=== PATIENT | female | born 1995 | race Caucasian/White ===

== ENCOUNTER 2022-05-09 14:46 | Emergency (ER) | payer BC, SELFPAY ==
[2022-05-09 15:11] VITALS: BP 177/113; PULSE 94; RESP 18; TEMP 37; O2SAT 96; BMI 44.9
--- NOTE | 2022-05-09 16:00 | CRLHL7_ITS ---
For Patients: As a result of the Century Cures Act, medical imaging exams and procedure reports are released immediately into your electronic medical record. You may view this report before your referring provider. If you have questions, please contact your health care provider. INDICATION: Right lower quadrant pain, history of PCOS. COMPARISON: None. TECHNIQUE: 2D corado scale and color Doppler images were acquired of the pelvis using a transvaginal approach. FINDINGS: Sonographic images demonstrate a normal size and smooth outer contour of the uterus. The uterus is anteverted in position. The uterus measures 7.6 cm in length by 3.8 cm in AP diameter by 3.8 cm in transverse dimension. The myometrium has uniform echotexture. The endometrial lining measures 4 mm in composite thickness. Small amount of fluid within the cervical canal. The right ovary measures 3.8 x 2.5 x 2.3 cm in size and the left ovary measures 2.0 x 1.9 x 2.1 cm in size. The ovaries demonstrate normal arterial and venous blood flow on color Doppler analysis. There is a 1.8 cm dominant follicle in the right ovary. No free fluid in the cul-de-sac. IMPRESSION: 1. Dominant follicle in the right ovary. 2. Small amount of fluid within the cervical canal. 3. Exam otherwise unremarkable. No evidence of torsion. Dictated by Elizabeth Davis MD @ 05/09/2022 5:53:57 PM (Electronically Signed)
--- NOTE | 2022-05-09 17:57 | ED_ITS ---
HPI - Abdominal Pain General Chief Complaint: Abdominal Pain Stated Complaint: Right Side Abdominal Pain Time Seen by Provider: 05/09/22 14:53 History of Present Illness HPI narrative: This 27-year-old female comes in reporting right lower quadrant abdominal pain that began upon awakening this morning. She woke up with this pain at around 7:00 a.m. and it has been constant since then. She does not report any altered bowel habits or function. She does not have any dysuria or fevers. She does have a history of polycystic ovarian syndrome. She states that she had an ultrasound about 5 years ago. Her symptoms involved pain in the right lower quadrant overlying her right ovary. Related Data Home Medications Medication Instructions Recorded Confirmed No Known Home Medications 05/09/22 05/09/22 Allergies Allergy/AdvReac Type Severity Reaction Status Date / Time No Known Allergies Allergy Unverified 05/08/22 08:54 Review of Systems Status of ROS Reports: 10 or more systems reviewed and unremarkable except as noted in History and below Narrative Constitutional: No fevers, no weight gain or loss. Eyes: No discharge. No vision changes. HENT: No congestion, no sore throat, no ear pain. Cardiovascular: No chest pain, no palpitations. Respiratory: No shortness of breath, no wheezes, no cough. Gastrointestinal: No vomiting, no diarrhea. Abdominal pain as described above. Genitourinary: No dysuria, no hematuria. Musculoskeletal: Normal range of motion. Skin: No rashes, no pruritis. Neurological: No dizziness, weakness, sensory change, speech change. Endo/Heme/Allergies: No bruising or bleeding. No polydipsia. Pysch: no suicidality, no anxiety, no insomnia. All other systems reviewed and are negative. PFSH PFSH Medical History Acute strain of neck muscle Concussion without loss of consciousness Family History Other Depression Diabetes High blood pressure High cholesterol Social History Narrative: Oral contraceptive use Smoking Status: Never smoker Do you use any of these nicotine containing products: None How often do you have a drink containing alcohol: monthly or less How often do you have six or more drinks on one occasion: Never AUDIT-C Alcohol total score: 1 Non-prescribed substance use: denies use Exam Narrative: Exam Narrative: Constitutional: Well-developed, well-nourished, no acute distress. HEENT: Normocephalic, atraumatic. Neck: Normal range of motion. Nontender. Supple. Heart: Regular. No murmurs. Normal rate. Intact distal pulses. Lungs: Clear to auscultation. No chest discomfort. No wheezes, rhonchi, or rales . Abdomen: Normal bowel sounds. Tenderness in the right lower quadrant overlying the area where the right ovary would be. No rebound tenderness. Genitalia: Deferred. Back: No midline tenderness. Normal range of motion. Extremities: Normal range of motion. No injury. Skin: Intact. No rash. Warm. No erythema or pallor. Neurologic: No altered sensation. No weakness. Alert and oriented. Psychiatric: No suicidality. No anxiety or depression. No insomnia. Nursing notes and vitals signs are reviewed. Const: Vital Signs, click to edit/add: Vital Signs - 24 hr 05/09/22 15:11 Temperature 98.6 F Pulse Rate [Left F emoral] 94 Respiratory Rate 18 Blood Pressure [Ri ght Upper Arm] 177/113 H Pulse Oximetry 96 Course Vital Signs Vital signs: Initial Vital Signs Temperature 98.6 F 05/09/22 15:11 Temperature Source Temporal Artery Scan 05/09/22 15:11 Pulse Rate 94 05/09/22 15:11 Respiratory Rate 18 05/09/22 15:11 Blood Pressure 177/113 H 05/09/22 15:11 Blood Pressure Mean 134 05/09/22 15:11 Blood Pressure Position Sitting 05/09/22 15:11 Pulse Oximetry 96 05/09/22 15:11 Oxygen Delivery Method 05/09/22 15:11 Vital Signs Temperature 98.6 F 05/09/22 15:11 Pulse Rate 94 05/09/22 15:11 Respiratory Rate 18 05/09/22 15:11 Blood Pressure 177/113 H 05/09/22 15:11 Pulse Oximetry 96 05/09/22 15:11 Temperature 98.6 F 05/09/22 15:11 Pulse Rate 94 05/09/22 15:11 Respiratory Rate 18 05/09/22 15:11 Blood Pressure 177/113 H 05/09/22 15:11 Pulse Oximetry 96 05/09/22 15:11 MDM - Abdominal Pain MDM Narrative Medical decision making narrative: This patient comes in with abdominal pain and given her history is suspicious for a ruptured ovarian cyst. An ultrasound of the pelvic organs is ordered and completed. Transvaginal ultrasound shows normal appearing ovaries and uterus. There is a follicle measuring 1.8 cm on the right ovary. There is a small amount of fluid in the cul-de-sac. These results are reassuring to the patient. She is really not showing any findings typical of polycystic ovarian syndrome. Nevertheless her pain may be related to her right ovary and a ruptured ovarian cyst or some drainage from the follicle. She is okay to be discharged home. She received a prescription for Toradol. Imaging Data pelvic us: Radiologist's impression: 1. Dominant follicle in the right ovary. 2. Small amount of fluid within the cervical canal. 3. Exam otherwise unremarkable. No evidence of torsion. Discharge Plan Discharge Clinical Impression: Abdominal pain Prescriptions: No Action No Known Home Medications 0RF Follow Up/Referrals: Jane Pool PA-C [Primary Care Provider] -
== END 2022-05-09 18:33 | disposition home or self-care (01) ==
LOC: ED 15:51
PROVIDERS: Emergency Provider Emergency Medicine Emergency Medical Services; PCP Physician Assistant Medical
DX: R10.9 Unspecified abdominal pain (principal)
CPT/HCPCS: 76830; 93976; 99284

== ENCOUNTER 2022-07-30 10:14 | Outpatient (CLI) | payer BC, SELFPAY ==
[2022-07-30 13:01] LABS: HCG Quantitative* < 2.39 mIU/mL
== END 2022-07-30 10:15 | disposition home or self-care (01) ==
LOC: NFLDREF 10:14
PROVIDERS: PCP Physician Assistant Medical; Visit Provider Obstetrics & Gynecology
DX: N92.6 Irregular menstruation, unspecified (principal)
CPT/HCPCS: 84702

== ENCOUNTER 2022-08-19 11:33 | Emergency (ER) | payer BC, SELFPAY ==
[2022-08-19 11:38] VITALS: BP 159/106; PULSE 103; RESP 18; TEMP 36.8; O2SAT 98; BMI 45.8
[2022-08-19 11:42] VITALS: BP 159/106; PULSE 103; RESP 18; TEMP 36.8; O2SAT 98
[2022-08-19 11:56] VITALS: BP 126/93
--- NOTE | 2022-08-19 11:56 | ED.GENADULT ---
HPI - General Adult General Time Seen by Provider: 11:57 Date Seen: 08/19/22 Chief complaint: High Blood Pressure Stated complaint: High bp Time Seen by Provider: 08/19/22 11:34 Source: patient Mode of arrival: ambulatory Limitations: no limitations History of Present Illness HPI narrative: Patient is a 27 year white female who reports she has had feelings of flushing recently and had noted an elevated blood pressure and presents for that. She also states she has been dropping things although does not really describe weakness in her arms or legs, no focal neurologic findings, no headache, no visual problem, no chest pain, no shortness of breath, ambulating without difficulty. 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 No leg swelling or edema. Related Data Home Medications Medication Instructions Recorded Confirmed escitalopram oxalate 5 mg tablet 30 mg PO QDAY 05/12/22 08/19/22 pregabalin 75 mg capsule 75 mg PO QDAY 05/12/22 08/19/22 Previous Rx's Medication Instructions Recorded norethindrone (contraceptive) 0.35 0.35 mg PO QDAY #84 tabs 05/12/22 mg tablet (Kareen) Allergies Allergy/AdvReac Type Severity Reaction Status Date / Time No Known Allergies Allergy Verified 08/19/22 11:37 Review of Systems Status of ROS: Reports: 10 or more systems reviewed and unremarkable except as noted in History and below [facility] Medical History Acute strain of neck muscle Concussion without loss of consciousness Digestive problems Wrist fracture Surgical History S/P section Family History Other Depression Diabetes High blood pressure High cholesterol Social History Narrative: Oral contraceptive use Smoking Status: Never smoker Do you use any of these nicotine containing products: None How often do you have a drink containing alcohol: monthly or less How often do you have six or more drinks on one occasion: Never AUDIT-C Alcohol total score: 1 Non-prescribed substance use: denies use Exam Narrative: Exam Narrative: Objective vital signs are slightly elevated blood pressure 159/106 afebrile O2 sat 90% on room air HEENT is unremarkable no facial asymmetry neck is supple pupils react to light Lungs are clear Heart rhythm regular no murmur Chest is clear Abdomen benign soft nontender elevated BMI Extremities are no edema neurologic nonfocal Good peripheral perfusion noted. Repeat blood pressure shows 123/86 Const: Vital Signs, click to edit/add: Vital Signs - 24 hr 08/19/22 11:38 Temperature 98.3 F Pulse Rate [Pulse Oximeter] 103 H Respiratory Rate 18 Blood Pressure [Ri ght Upper Arm] 159/106 H Pulse Oximetry 98 Oxygen Delivery Me thod Room Air Course Vital Signs Vital signs: Initial Vital Signs Temperature 98.3 F 08/19/22 11:38 Temperature Source Temporal Artery Scan 08/19/22 11:38 Pulse Rate 103 H 08/19/22 11:38 Respiratory Rate 18 08/19/22 11:38 Blood Pressure 159/106 H 08/19/22 11:38 Blood Pressure Mean 123 08/19/22 11:38 Blood Pressure Position Supine 08/19/22 11:38 Pulse Oximetry 98 08/19/22 11:38 Oxygen Delivery Method 08/19/22 11:38 Vital Signs Temperature 98.3 F 08/19/22 11:38 Pulse Rate 103 H 08/19/22 11:38 Respiratory Rate 18 08/19/22 11:38 Blood Pressure 159/106 H 08/19/22 11:38 Pulse Oximetry 98 08/19/22 11:38 Oxygen Delivery Method 08/19/22 11:38 Temperature 98.3 F 08/19/22 11:38 Pulse Rate 103 H 08/19/22 11:38 Respiratory Rate 18 08/19/22 11:38 Blood Pressure 159/106 H 08/19/22 11:38 Pulse Oximetry 98 08/19/22 11:38 Oxygen Delivery Method 08/19/22 11:38 Medical Decision Making MDM Narrative Medical decision making narrative: Patient has a benign-appearing examination, blood pressure is improved, at this point I think could be appropriate to check some baseline labs heme 4 basic 7. I would have her follow up with a line a with several blood pressure checks a day over the next several days and then repeat visit. She has had some symptoms of flushing which I think we can review with the lab studies, her examination looks unremarkable, no symptoms of infectious illness or metabolic abnormality at this time, will check the labs to ensure this, reach eat repeat blood pressure measures and then follow-up visit as described. I do not detect any focal neurologic weakness today Discharge Plan Discharge Clinical Impression: Elevated blood pressure reading Patient Disposition: Home, Self-Care Condition: Stable Additional Instructions: Check blood pressure 2 to 3 times a day over the next several days and then follow-up clinic appointment align a. Restrict salt in the diet, physical activity, reduce stress, return to ED sooner problems concerns difficulty. We will call back today if any abnormalities in her blood work Activity Level: No Restrictions Discharge Diet: Regular Prescriptions: No Action escitalopram oxalate 5 mg tablet 30 mg PO QDAY pregabalin 75 mg capsule 75 mg PO QDAY norethindrone (contraceptive) [Kareen] 0.35 mg tablet 0.35 mg PO QDAY Qty: 84 3RF Follow Up/Referrals: Jane Pool PA-C [Primary Care Provider] - Stand Alone Forms: [employer] Info Instructions
[2022-08-19 12:00] VITALS: BP 121/66
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
[2022-08-19 12:15] LABS: Basophils Absolute Auto 0.03 K/uL (0.00-0.30); Basophils Percent Auto 0.3 % (0.0-3.0); Eosinophils Absolute Auto 0.26 K/uL (0.00-0.50); Eosinophils Percent Auto 2.7 % (0.0-7.0); Hematocrit 39.4 % (33.0-51.0); Immature Granulocytes Abs Auto 0.01 K/uL (0.00-0.30); Lymphocytes Percent Auto 16.7 % (20-44); Mean Corpuscular HGB Conc 33 gm/dL (32-36); Mean Corpuscular Hemoglobin 26 pg (26-34); Mean Corpuscular Volume 78 fL (80-100); Monocytes Percent Auto 6.3 % (0.0-11.0); Neutrophils Percent Auto 73.9 % (42.0-72.0); Platelet Count* 284 K/uL (140-440); Red Blood Count 5.08 m/uL (4.00-5.20); White Blood Count* 9.76 K/uL (4.50-11.00)
[2022-08-19 12:22] LABS: Slide Review Reflex No
[2022-08-19 12:29] LABS: Chloride* 104 mmol/L (96-114); Potassium* 4.2 mmol/L (3.6-5.1); Sodium* 140 mmol/L (135-149)
[2022-08-19 12:32] LABS: Blood Urea Nitrogen* 8 mg/dL (5-24); Carbon Dioxide* 27 mmol/L (20-32); Creatinine* 0.6 mg/dL (0.5-1.5); Est. Creatinine Clearance* 126.73; Estimated Glomerular Filt Rate 126 ml/min; Glucose* 105 mg/dL (60-115)
== END 2022-08-19 12:17 | disposition home or self-care (01) ==
PROVIDERS: Emergency Provider Family Medicine
DX: R03.0 Elevated blood-pressure reading, without diagnosis of hypertension (principal)
CPT/HCPCS: 36415; 80048; 85025; 99282; 99283

== ENCOUNTER 2022-08-27 08:02 | Outpatient (CLI) | payer BC, SELFPAY ==
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
--- NOTE | 2022-08-27 08:15 | CRLHL7_ITS ---
For Patients: As a result of the Century Cures Act, medical imaging exams and procedure reports are released immediately into your electronic medical record. You may view this report before your referring provider. If you have questions, please contact your health care provider. INDICATION: Hypertension TECHNIQUE: Grayscale, color Doppler and power Doppler evaluation of both kidneys. COMPARISON: None available FINDINGS: BILATERAL RENAL ARTERY DUPLEX ULTRASOUND ABDOMINAL AORTA: Peak systolic velocity = 110 cm/s. No aortic aneurysm. RIGHT KIDNEY: 11.1 cm in length. There is no hydronephrosis. Peak systolic velocity = 150 cm/second Renal artery to aortic peak systolic velocity ratio = 1.4 Resistive indices: 0.6 Renal vein = patent LEFT KIDNEY: 11.4 cm in length. There is no hydronephrosis. Peak systolic velocity = 93 cm/second Renal artery to aortic peak systolic velocity ratio = 0.8 Resistive indices: 0.5-0.6 Renal vein = patent IMPRESSION: No evidence of significant renal artery stenosis. Dictated by Fly Sexton MD @ 08/27/2022 12:18:39 PM (Electronically Signed)
== END 2022-08-27 08:03 | disposition home or self-care (01) ==
LOC: US 08:03
PROVIDERS: PCP Student in an Organized Health Care Education/Training Program; Visit Provider Student in an Organized Health Care Education/Training Program
DX: R03.0 Elevated blood-pressure reading, without diagnosis of hypertension (principal)
CPT/HCPCS: 76775; 93975

== ENCOUNTER 2022-11-22 20:06 | Outpatient (CLI) | payer BC, SELFPAY | END 2022-11-22 20:07 | disposition home or self-care (01) | PROVIDERS: PCP Student in an Organized Health Care Education/Training Program; Visit Provider Otolaryngology | DX: G47.33 Obstructive sleep apnea (adult) (pediatric) (principal) | CPT/HCPCS: 95810 ==

== ENCOUNTER 2024-10-12 14:24 | Emergency (ER) | payer BC, SELFPAY ==
[2024-10-12 14:39] VITALS: BP 134/89; PULSE 105; RESP 18; TEMP 36.9; O2SAT 98; BMI 47.3
--- NOTE | 2024-10-12 15:13 | ED.ABDPAIN ---
HPI - Abdominal Pain General Time Seen by Provider: 15:14 Date Seen: 10/12/24 Chief Complaint: Abdominal Pain Stated Complaint: abdominal pain Time Seen by Provider: 10/12/24 15:11 Source: patient and RN notes reviewed Mode of arrival: ambulatory Limitations: no limitations History of Present Illness HPI narrative: This 29-year-old female is coming in with progressively worsening abdominal pain since yesterday. It is definitely worse today than was yesterday. She has been trying alternating Tylenol and ibuprofen. It is coming in waves. She will feel it into the front of her legs. She has nausea with this but no vomiting, notes diminished appetite. Maybe has had some blueberries today. Had a normal bowel movement this morning, denies any history constipation, there has been no diarrhea. There was no urinary changes. She has had a prior about 10 years ago but no other abdominal surgeries. She has felt clammy lightheaded, dizzy with this. She does have some mild low back pain. She is not aware of any family history such as gallbladder disease or kidney stones. She is on contraceptives, does have underlying PCOS. Denies any reflux or heartburn symptoms. Pain initially felt in her lower abdomen but now it seems to be generalizing, is feeling it in her upper abdomen too. She does state her menstrual cycle is due, initially thought maybe her symptoms were just PMS but were severe for her. States there is no chance for , is on oral contraceptives. elicited complaint: abdominal pain Related Data Home Medications ?Medication ?Instructions ?Recorded ?Confirmed escitalopram oxalate 5 mg tablet 30 mg PO QDAY 05/12/22 09/24/23 Previous Rx's ?Medication ?Instructions ?Recorded norethindrone (contraceptive) 0.35 0.35 mg PO QDAY #84 tabs 09/24/23 mg tablet (Kareen) ketorolac 10 mg tablet 10 mg PO Q6H PRN pain #20 tabs 10/12/24 Allergies Allergy/AdvReac Type Severity Reaction Status Date / Time No Known Allergies Allergy Verified 09/24/23 15:32 Review of Systems Status of ROS Reports: 6 or more systems reviewed and unremarkable except as noted in History and below PFSH PFS Medical History Wrist fracture ?S62.109A - Fracture of unspecified carpal bone, unspecified wrist, initial encounter for closed fracture (ICD-10) Digestive problems ?K92.9 - Disease of digestive system, unspecified (ICD-10) Concussion without loss of consciousness ?S06.0X0A - Concussion without loss of consciousness, initial encounter (ICD-10) Acute strain of neck muscle ?S16.1XXA - Strain of muscle, fascia and tendon at neck level, initial encounter (ICD-10) Surgical History S/P section ?Z98.891 - History of uterine scar from previous surgery (ICD-10) Family History Other Depression Diabetes High blood pressure High cholesterol Osteoporosis Social History Narrative: Oral contraceptive use What is your current living situation?: I presently have a place to live Problems where you live: no known problems In the past 12 months, utilities in danger of being shut off: no In past 12 months, lack of transportation kept you from medical appts, meetings, work, or getting things needed for daily living: no In the past 12 mos, have been you worried that your food would run out before you had money to buy more?: never true In the past 12 mos, the food you bought just didn't last and you didn't have money to buy more?: never true Smoking Status: Never smoker Do you use any of these nicotine containing products: None How often do you have a drink containing alcohol: monthly or less How often do you have six or more drinks on one occasion: Never AUDIT-C Alcohol total score: 1 Non-prescribed substance use: denies use How often does anyone, including family, friends and others, physically hurt you: never How often does anyone, including family, friends and others, insult or talk down to you: never How often does anyone, including family, friends and others, threaten you with harm: never How often does anyone, including family, friends and others, scream or curse at you: never service: No Exam Const: Vital Signs, click to edit/add: Vital Signs - 24 hr 10/12/24 14:39 10/12/24 16:54 Temperature 98.4 F Pulse Rate [Pulse Oximeter] 105 H 68 Respiratory Rate 18 18 Blood Pressure [Ri ght Upper Arm] 134/89 112/77 Pulse Oximetry 98 98 Oxygen Delivery Me thod Room Air This 29-year-old female is seen in exam room 4, she is alert, interactive, no apparent distress. Sclera clear, symmetric facial function, able to speak in complete sentences. Lungs are clear, good air entry, no wheezing or crackles, no tachypnea, no accessory muscle use. CV regular rate and rhythm, no murmur. Abdomen is obese but soft, bowel sounds are distant but do hear some. Do not feel any masses or organomegaly but body habitus may confound this examination. She certainly seems to have the most tenderness in the right upper quadrant at this time. Documenting provider has reviewed patient's vital signs: yes Course Course ED Course: Patient is uncomfortable, discussed pain management. Agreed upon Toradol which if she does discharge from here she can not drive on. She declines anything for nausea at this time, states she will be fine. Will proceed with right upper quadrant ultrasound, pain definitely seems to be localized over the right upper quadrant and in the gallbladder area. Will get full complement of labs as well. Reevaluation(s) Time of Reevaluation #1: 16:44 Reevaluation #1: Nursing staff reported after patient came back from ultrasound, went to the bathroom and did start bleeding, passed a clot. She thinks it is possibly her menstrual cycle starting that caused her symptoms. Did review with nursing staff that there certainly were gallstones seen on ultrasound, she was negative for sonographic Ferrera sign per door to door fundraising collector. Awaiting labs, awaiting over-read of the ultrasound. Time of Reevaluation #2: 17:08 Reevaluation #2: Have reviewed the ultrasound report, patient does have fatty liver and gallstones. I do think she is likely asymptomatic as far as gallstones. She did have right upper quadrant tenderness for me but also has subsequently started with her menstrual cycle. She states she has had this happen before, has had significant pain and bleeding that brought her to the ER before her cycle actually started. Will plan on discharge to home, she felt the IV Toradol really helped, will send her with some Toradol orally. She states she has tried different control options, can follow up with her primary outpatient to discuss this further. Vital Signs Vital signs: Initial Vital Signs Temperature 98.4 F 10/12/24 14:39 Temperature Source Temporal Artery Scan 10/12/24 14:39 Pulse Rate 105 H 10/12/24 14:39 Respiratory Rate 18 10/12/24 14:39 Blood Pressure 134/89 10/12/24 14:39 Blood Pressure Mean 104 10/12/24 14:39 Blood Pressure Position Sitting 10/12/24 14:39 Pulse Oximetry 98 10/12/24 14:39 Oxygen Delivery Method Room Air 10/12/24 14:39 Vital Signs Temperature 98.4 F 10/12/24 14:39 Pulse Rate 105 H 10/12/24 14:39 Respiratory Rate 18 10/12/24 14:39 Blood Pressure 134/89 10/12/24 14:39 Pulse Oximetry 98 10/12/24 14:39 Oxygen Delivery Method Room Air 10/12/24 14:39 Temperature 98.4 F 10/12/24 14:39 Pulse Rate 68 10/12/24 16:54 Respiratory Rate 18 10/12/24 16:54 Blood Pressure 112/77 10/12/24 16:54 Pulse Oximetry 98 10/12/24 16:54 Oxygen Delivery Method Room Air 10/12/24 14:39 Medications Administered Medications: Discontinued Medications Generic Name Dose Route Start Last Admin Trade Name Freq PRN Reason Stop Dose Admin Ketorolac Tromethamine 15 mg 10/12/24 15:26 10/12/24 16:22 Ketorolac 15 Mg/Ml Inj IVP 10/12/24 15:27 15 mg ONCE ONE Administration MDM - Abdominal Pain Lab Data Attestation: I reviewed the patient's lab results. Labs: Lab Results 10/12/24 10/12/24 Range/Units 15:07 15:40 WBC 11.73 H (4.50-11.00) K/uL RBC 4.97 (4.00-5.20) m/uL Hgb 12.4 (12.0-16.0) gm/dL Hct 38.5 (33.0-51.0) % MCV 78 L (80-100) fL MCH 25 L (26-34) pg MCHC 32 (32-36) gm/dL RDW Coeff of Rory 14.2 (11.5-15.5) % Plt Count 296 (140-440) K/uL Neut % (Auto) 82.5 H (42.0-72.0) % Lymph % (Auto) 12.4 L (20-44) % Baker % (Auto) 3.8 (0.0-11.0) % Eos % (Auto) 0.9 (0.0-7.0) % Baso % (Auto) 0.2 (0.0-3.0) % Neut # (Auto) 9.70 H (1.7-7.0) K/uL Lymph # (Auto) 1.50 (0.90-2.90) K/uL Baker # (Auto) 0.40 (0.00-0.90) K/UL Eos # (Auto) 0.10 (0.00-0.50) K/uL Baso # (Auto) 0.00 (0.00-0.30) K/uL Abs Immat Gran (auto) 0.00 (0.00-0.30) K/uL Imm/Tot Granulo (auto) 0.2 % Sodium 138 (135-149) mmol/L Potassium 4.2 (3.6-5.1) mmol/L Chloride 104 (96-114) mmol/L Carbon Dioxide 26 (20-32) mmol/L Anion Gap 8 (7-15) mEq/L BUN 11 (5-24) mg/dL Creatinine 0.5 (0.5-1.5) mg/dL Estimated Creat Clear 149.39 Estimated GFR 130 ml/min Glucose 108 (60-115) mg/dL Lactate 2.2 H (0.5-1.9) mmol/L Calcium 9.5 (8.4-10.6) mg/dL Total Bilirubin 0.3 (0.1-1.5) mg/dL Direct Bilirubin 0.2 (0.0-0.5) mg/dL AST 22 (12-35) U/L ALT 19 (4-35) U/L Alkaline Phosphatase 98 (40-150) U/L C-Reactive Protein 1.7 H (0.5-1.0) mg/dL Total Protein 7.5 (6.0-8.3) g/dL Albumin 4.4 (3.3-5.0) g/dL Lipase 30 (23-300) U/L Urine Color Yellow (Yellow) Urine Appearance Slightly Cloudy A (Clear) Urine pH 7.0 (5.0-8.5) Ur Specific [place] 1.020 (1.000-1.030) Urine Protein Negative (Negative) Urine Glucose (UA) Negative (Negative) Urine Ketones Negative (Negative) Urine Blood Negative (Negative) Urine Nitrite Negative (Negative) Urine Bilirubin Negative (Negative) Urine Urobilinogen 0.2 (0.2-1.0) Ur Leukocyte Esterase Negative (Negative) Urine RBC 0-2 (0-2) Urine WBC 0-2 (0-5) Ur Squamous Epith Cells None (None-Few) Urine Bacteria Few A (None) Urine HCG, Qual Negative (Negative) Imaging Data US - abdomen: Attestation: I have reviewed the pertinent imaging results. Radiologist's impression: Patient: LIEN MARTINEZ Facility:?[facility] Patient ID:?[id number] Site Patient ID:?[id number]. Site :?[id number] Study:?US-Abdomen US ABDOMEN LIMITED [facility]-10/12/2024 4:16:19 PM Ordering Physician:Kenya Soto Final Report: INDICATION: Right upper quadrant abdomen pain. TECHNIQUE: Ultrasound abdomen limited. Sonographic images of the right upper quadrant were obtained using corado-scale and color Doppler images. COMPARISON: None. FINDINGS: Liver: Diffusely hyperechoic parenchyma. No suspicious masses. No intrahepatic biliary dilatation. Gallbladder: Cholelithiasis. Normal wall thickness. No pericholecystic fluid. Common bile duct: 3 mm. Pancreas: Not well visualized Right kidney: Normal in size. Normal echotexture and cortex. No suspicious masses, stones, or hydronephrosis. Vasculature: Proximal abdominal aorta is unremarkable. IMPRESSION: 1. Cholelithiasis without other findings to suggest acute cholecystitis. 2. Diffusely hyperechoic hepatic parenchyma, suggestive of steatosis. Dictated by Taras Gutierrez MD @ 10/12/2024 4:45:53 PM (Electronic Signature) Discharge Plan Discharge Clinical Impression: Dysmenorrhea Cholelithiasis Qualifiers: Cholelithiasis location: gallbladder Cholecystitis presence: without cholecystitis Biliary obstruction: without biliary obstruction Qualified Code(s): K80.20 - Calculus of gallbladder without cholecystitis without obstruction Patient Disposition: Home, Self-Care Condition: Stable Instructions: Dysmenorrhea (ED), Gallstones (ED) Additional Instructions: Can stand Tylenol while you use the Toradol per prescription. Once the Toradol as done can put ibuprofen back as needed for pain, follow bottle directions for dosing. Please follow-up in clinic, you can discuss the painful menstrual cycles further with your primary provider. Your gallstones seemed to be asymptomatic at this time but could be referred to surgery. Activity Level: Activity as Tolerated Prescriptions: New ketorolac 10 mg tablet 10 mg PO Q6H PRN (Reason: pain) Qty: 20 0RF Rx Instructions: maximum total duration of 5 days from all oral, intranasal, or parenteral formulations No Action escitalopram oxalate 5 mg tablet 30 mg PO QDAY norethindrone (contraceptive) [Kareen] 0.35 mg tablet 0.35 mg PO QDAY Qty: 84 4RF Follow Up/Referrals: Frida Lamar PA-C [Primary Care Provider] - Stand Alone Forms: [employer] Info Instructions
[2024-10-12 15:14] LABS: Appearance Urine Slightly Cloudy (Clear); Bilirubin Urine Negative (Negative); Blood Urine Negative (Negative); Color Urine Yellow (Yellow); Glucose Urine Negative (Negative); Ketones Urine Negative (Negative); Leukocyte Esterase Urine Negative (Negative); Nitrite Urine Negative (Negative); Protein Urine Negative (Negative); Urobilinogen Urine 0.2 (0.2-1.0)
[2024-10-12 15:17] LABS: Bacteria Urine Few; RBC Urine 0-2 (0-2); WBC Urine 0-2 (0-5)
--- NOTE | 2024-10-12 15:26 | CRLHL7_ITS ---
For Patients: As a result of the Century Cures Act, medical imaging exams and procedure reports are released immediately into your electronic medical record. You may view this report before your referring provider. If you have questions, please contact your health care provider. INDICATION: Right upper quadrant abdomen pain. TECHNIQUE: Ultrasound abdomen limited. Sonographic images of the right upper quadrant were obtained using corado-scale and color Doppler images. COMPARISON: None. FINDINGS: Liver: Diffusely hyperechoic parenchyma. No suspicious masses. No intrahepatic biliary dilatation. Gallbladder: Cholelithiasis. Normal wall thickness. No pericholecystic fluid. Common bile duct: 3 mm. Pancreas: Not well visualized Right kidney: Normal in size. Normal echotexture and cortex. No suspicious masses, stones, or hydronephrosis. Vasculature: Proximal abdominal aorta is unremarkable. IMPRESSION: 1. Cholelithiasis without other findings to suggest acute cholecystitis. 2. Diffusely hyperechoic hepatic parenchyma, suggestive of steatosis. Dictated by Taras Gutierrez MD @ 10/12/2024 4:45:53 PM (Electronically Signed)
[2024-10-12 15:29] LABS: Ur HCG Qualitative* Negative (Negative)
[2024-10-12 15:45] LABS: Lactate* 2.2 mmol/L (0.5-1.9)
[2024-10-12 15:59] LABS: Basophils Percent Auto 0.2 % (0.0-3.0); Eosinophils Percent Auto 0.9 % (0.0-7.0); Hematocrit 38.5 % (33.0-51.0); Hemoglobin* 12.4 gm/dL (12.0-16.0); Immature Granulocytes Pct Auto 0.2 %; Lymphocytes Percent Auto 12.4 % (20-44); Mean Corpuscular HGB Conc 32 gm/dL (32-36); Mean Corpuscular Hemoglobin 25 pg (26-34); Mean Corpuscular Volume 78 fL (80-100); Monocytes Percent Auto 3.8 % (0.0-11.0); Neutrophils Percent Auto 82.5 % (42.0-72.0); Platelet Count* 296 K/uL (140-440); RDW Coefficient of Variation % 14.2 % (11.5-15.5); Red Blood Count 4.97 m/uL (4.00-5.20); White Blood Count* 11.73 K/uL (4.50-11.00)
[2024-10-12 16:07] LABS: Albumin* 4.4 g/dL (3.3-5.0); Chloride* 104 mmol/L (96-114); Slide Review Reflex No
[2024-10-12 16:08] LABS: Potassium* 4.2 mmol/L (3.6-5.1); Sodium* 138 mmol/L (135-149)
[2024-10-12 16:10] LABS: Creatinine* 0.5 mg/dL (0.5-1.5); Est. Creatinine Clearance* 149.39; Estimated Glomerular Filt Rate 130 ml/min
[2024-10-12 16:11] LABS: Alanine Aminotransferase* 19 U/L (4-35); Alkaline Phosphatase* 98 U/L (40-150); Anion Gap 8 mEq/L (7-15); Aspartate Amino Transferase* 22 U/L (12-35); Bilirubin Direct* 0.2 mg/dL (0.0-0.5); Bilirubin Total* 0.3 mg/dL (0.1-1.5); Blood Urea Nitrogen* 11 mg/dL (5-24); Calcium* 9.5 mg/dL (8.4-10.6); Carbon Dioxide* 26 mmol/L (20-32); Glucose* 108 mg/dL (60-115); Lipase* 30 U/L (23-300); Total Protein* 7.5 g/dL (6.0-8.3)
[2024-10-12 16:14] LABS: C Reactive Protein* 1.7 mg/dL (0.5-1.0)
[2024-10-12] MEDS: KETOROLAC 15 MG/ML inj IVP (16:22)
[2024-10-12 16:54] VITALS: BP 112/77; PULSE 68; RESP 18; O2SAT 98
== END 2024-10-12 17:24 | disposition home or self-care (01) ==
PROVIDERS: Emergency Provider Family Medicine; PCP Student in an Organized Health Care Education/Training Program
DX: N94.6 Dysmenorrhea, unspecified (principal); K80.20 Calculus of gallbladder without cholecystitis without obstruction
CPT/HCPCS: 36415; 76705; 80053; 81001; 81025; 82248; 83605; 83690; 85025; 86140; 87086; 96374; 99284; J1885

== ENCOUNTER 2024-11-10 09:15 | Outpatient (CLI) | payer BC, SELFPAY ==
[2024-11-12 20:32] LABS: HPV Source Cervix; HPV, High Risk by TMA Not Detected
== END 2024-11-10 09:16 | disposition home or self-care (01) ==
PROVIDERS: PCP Student in an Organized Health Care Education/Training Program; Visit Provider Registered Nurse
DX: N92.0 Excessive and frequent menstruation with regular cycle (principal); R10.2 Pelvic and perineal pain; Z12.4 Encounter for screening for malignant neoplasm of cervix; Z11.51 Encounter for screening for human papillomavirus (HPV)
CPT/HCPCS: 84443; 87086; 87624; 87625; 88141; 88142

== ENCOUNTER 2024-11-14 11:22 | Outpatient (CLI) | payer BC, SELFPAY ==
--- NOTE | 2024-11-14 11:30 | CRLHL7_ITS ---
For Patients: As a result of the Century Cures Act, medical imaging exams and procedure reports are released immediately into your electronic medical record. You may view this report before your referring provider. If you have questions, please contact your health care provider. INDICATION: Menorrhagia. TECHNIQUE: Transabdominal and transvaginal pelvic ultrasound. Grayscale and color Doppler images. FINDINGS: The uterus is anteverted and measures 8.5 x 2.9 x 4.1 cm. Endometrial stripe thickness is 7 mm. Both ovaries appear normal. No adnexal mass or free fluid. IMPRESSION: Normal pelvic ultrasound. Dictated by Niko Moore MD @ 11/14/2024 2:03:59 PM (Electronically Signed)
== END 2024-11-14 11:23 | disposition home or self-care (01) ==
LOC: US 11:23
PROVIDERS: PCP Student in an Organized Health Care Education/Training Program; Visit Provider Registered Nurse
DX: N92.0 Excessive and frequent menstruation with regular cycle (principal); R10.2 Pelvic and perineal pain
CPT/HCPCS: 76830; 76856